=== PATIENT | male | born 1965 | race Caucasian/White ===

== ENCOUNTER 2023-05-26 16:23 | Emergency (ER) | payer OTHER ==
[~2023-05-26] VITALS: Ht 185.4 cm; Wt 103.4 kg
[2023-05-26] MEDS ORDERED: CYCLOBENZAPRINE 10 MG TABLET ONE (16:51)
[2023-05-26] MEDS ORDERED: KETOROLAC TROMETHAMINE 15 MG/ML VIAL ONE (16:51)
[2023-05-26] MEDS ORDERED: KETOROLAC TROMETHAMINE INJ 30 MG/ML VIAL IM ONE (17:00)
[2023-05-26] MEDS ORDERED: CYCLOBENZAPRINE 10 MG TABLET PO ONE (17:00)
[2023-05-26] MEDS ORDERED: HYDR-4303 PO (17:53)
[2023-05-26] MEDS ORDERED: IBUP-1957 PO (17:53)
[2023-05-26] MEDS ORDERED: METH1ADH6 TP (17:53)
[2023-05-26 18:32] VITALS: BP 101/77; TEMP 98.2; O2SAT 99
== END 2023-05-26 18:34 | disposition home or self-care (01) ==
LOC: ER 16:28
DX: M25.511 Pain in right shoulder (principal); I10 Essential (primary) hypertension; K21.9 Gastro-esophageal reflux disease without esophagitis
CPT/HCPCS: 99283; 96372; J1885